=== PATIENT | female | born 1955 | race African-American/Black ===

== ENCOUNTER 2016-06-07 12:17 | Emergency (ER) | payer MEDICARE, OTHER ==
--- NOTE | ~2016-06-07 | CR63 ---
[facility] A Service of [facility] RADIOLOGY TEXT RESULTS PATIENT: CRISTIN BONNER LOCATION: [facility] : 59 UNIT #: [id number] AGE: [address]: Geovany Murray MD SEX: F ORDER DR: [id number] [facility] [address] [place], [place] [address] [id number] MR#: [id number] Acc #: [id number] NAME: CRISTIN BONNER : 1955 SEX: F STUDY DATE/TIME: 06/07/2016 12:47 UNIT: [facility] ROOM: STUDY DESCRIPTION: CR Chest 2 View Attending Physician: Geovany Murray Ordering Physician: Ed Doctor [id number] [facility] Primary Care Physician: [facility] MEDICAL IMAGING REPORT This report is preliminary unless electronic signature is present EXAM PA and lateral chest. INDICATIONS Cough and chest pain since yesterday. COMPARISON 10/24/2013. FINDINGS PA and lateral view of the chest were obtained. Heart size and vascularity are normal. Lungs are clear. The bones are unremarkable. IMPRESSION No active disease. Dictated by... Julian Valle M.D. THIS IS AN ELECTRONICALLY VERIFIED REPORT Julian Valle M.D. at 06/08/2016 3:07 PM Esther TD: 06/08/2016 06:33 JOB #: [id number] MEDICAL IMAGING REPORT COPY
[~2016-06-07 12:17] MED LIST: ACETAMINOPHEN PO; ALBUTEROL17 GM INH; AMOXICILLIN PO; AMOXICILLIN500 M1 PO; ANTIVERT12.5 MG PO; CLARITIN10 MG PO; DOXYCYCLINE HY100 M1 PO; DOXYCYCLINE PO; FERROUS SULFATE PO; HCTZ PO; HYDROCHLOROTH12.5 MG PO; IBUPROFEN PO; KEFLEX PO; LISINOPRIL PO; LISINOPRIL20 MG PO; LORTAB 5/500 TA1 TA1 PO; MEDROL4 MG/DOSE- PO; MOTRIN50 MG PO; MUCINEX DM1 TAB.SR . PO; PHENERGAN PR; PREDNISONE PO; TESSALON200 MG PO; VICODIN 5/1 TAB 5/50 PO; VICODIN 5/500 T1 TAB PO; VICODIN PO; VOLTAREN75 MG PO
[2016-06-07 12:41] LABS: INFLUENZA A POS (NEG)
[2016-06-07 12:42] LABS: INFLUENZA B NEG (NEG)
== END 2016-06-07 13:50 | disposition home or self-care (01) ==
LOC: CED 12:17
PROVIDERS: Emergency Medicine
DX: J10.1 Influenza due to other identified influenza virus with other respiratory manifestations (principal); I10 Essential (primary) hypertension
CPT/HCPCS: 71020; 87804; 94640; 99283